=== PATIENT | female | born 1990 | race Caucasian/White ===

== ENCOUNTER 2018-05-29 15:30 | Outpatient (RCR) | payer BC ==
[~2018-05-29 15:30] MED LIST: AUGMENTIN XR 101 TER PO; CARAFATE 1GM1 G PO; EFFEXOR 75M75 MG/TAB PO; LUTERA 0.02 MG-1 TAB PO; NO HOME MEDICATIONS; PERCOCET 325 MG1 TA2 PO; PHENERGAN 25 TA25 MG PO; PROAIR HFA0.09 MG/AC; TOPAMAX 25MG25 M1 PO; ZOFRAN 4MG T4 MG/TAB PO
== END 2018-08-01 | disposition home or self-care (01) ==
LOC: WSPT
DX: M54.2 Cervicalgia (principal); G89.29 Other chronic pain; G43.709 Chronic migraine without aura, not intractable, without status migrainosus; Z79.82 Long term (current) use of aspirin; Z79.899 Other long term (current) drug therapy

== ENCOUNTER → 2019-03-14 | Outpatient (CLI) | payer BC ==
[~2019-03-14] MED LIST changes: +FLEXERIL 1010 MG/TAB PO; +MOBIC 7.5MG7.5 MG PO; +XANAX 0.5MG0.5 MG PO; +ZANAFLEX CAPSULE2 MG PO
== END ==
LOC: MHCPAIN 08:47
DX: G89.29 Other chronic pain (principal); M47.812 Spondylosis without myelopathy or radiculopathy, cervical region; R51 Headache; M54.81 Occipital neuralgia
CPT/HCPCS: G0463

== ENCOUNTER → 2019-03-28 | Outpatient (CLI) | payer BC | LOC: MHCPAIN 08:42 | DX: M79.18 Myalgia, other site (principal) | CPT/HCPCS: J1040 ==

== ENCOUNTER 2019-05-12 18:18 | Emergency (ER) | payer BC ==
[~2019-05-12] VITALS: Ht 160 cm; Wt 113.2 kg
[2019-05-12 18:24] VITALS: BP 134/75; TEMP 98.2
[2019-05-12 19:09] LABS: BASO % 0.2 % (0.0-2.0); EOS % 0.2 % (0-4.0); GRAN # 11.3 (1.4-6.5); GRAN % 88.7 % (42.2-75.2); HEMATOCRIT 39.9 % (37.0-47.0); HEMOGLOBIN 12.9 g/dl (12.5-16.0); LYMPH % 7.5 % (20.0-51.0); MEAN CELL VOLUME 86 fl (80.0-100.0); MEAN CORPUSCULAR HEMOGLOBIN 28 pg (27.0-31.0); MEAN CORPUSCULAR HGB CONC 32 g/dl (33.0-37.0); MEAN PLATELET VOLUME 10.5 fl (7.4-10.4); MONO # 0.4 (0.1-0.6); MONO % 2.9 % (1.7-9.3); PLATELET COUNT 248 K/mm3 (130-400); RED BLOOD COUNT 4.62 M/mm3 (4.10-5.30); REDCELL DISTRIBUTION WIDTH-CV 13.5 % (11.5-14.5)
[2019-05-12 19:12] LABS: ALBUMIN 4.4 gm/dL (3.5-5.0); BILIRUBIN,TOTAL 0.4 mg/dL (0.0-1.0); CALCIUM 9.2 mg/dL (8.4-10.2); CREATININE, serum 0.55 (0.52-1.25); POTASSIUM 3.8 mmol/L (3.4-5.0); TOTAL PROTEIN 7.8 gm/dL (6.4-8.2)
[2019-05-12 19:53] VITALS: PULSE 85
== END 2019-05-12 19:53 | disposition home or self-care (01) ==
LOC: COL.ER 18:18
PROVIDERS: Physician Assistant
DX: O21.0 Mild hyperemesis gravidarum (principal); Z3A.09 9 weeks gestation of pregnancy
CPT/HCPCS: J2405; J7030

== ENCOUNTER 2019-05-12 22:58 | Emergency (ER) | payer BC ==
[~2019-05-12] VITALS: Ht 160 cm; Wt 111.8 kg
[2019-05-12 23:09] VITALS: TEMP 98.9
[2019-05-12 23:46] LABS: COLLECTION METHOD CLEAN CATCH
[2019-05-12 23:52] LABS: MUCOUS Present /lpf; PH 5 (5-8); URINE APPEARANCE Hazy; URINE BACTERIA Rare /hpf; URINE BILIRUBIN Negative (NEGATIVE); URINE BLOOD Negative (NEGATIVE); URINE COLOR Yellow; URINE GLUCOSE Negative (NEGATIVE); URINE KETONE 1+ (NEGATIVE); URINE LEUKOCYTE ESTERASE Negative (NEGATIVE); URINE NITRATE Negative (NEGATIVE); URINE PROTEIN(semi-quant) Negative (NEGATIVE); URINE RBC 0-2 /hpf; URINE UROBILINOGEN Negative (NEGATIVE)
[2019-05-13 00:05] LABS: BASO % 0.1 % (0.0-2.0); EOS % 0.1 % (0-4.0); GRAN % 90.5 % (42.2-75.2); HEMATOCRIT 39.2 % (37.0-47.0); HEMOGLOBIN 12.6 g/dl (12.5-16.0); LYMPH # 0.6 (1.2-3.4); LYMPH % 5.9 % (20.0-51.0); MEAN CELL VOLUME 88 fl (80.0-100.0); MEAN CORPUSCULAR HEMOGLOBIN 28 pg (27.0-31.0); MEAN CORPUSCULAR HGB CONC 32 g/dl (33.0-37.0); MEAN PLATELET VOLUME 10.7 fl (7.4-10.4); MONO # 0.3 (0.1-0.6); MONO % 2.9 % (1.7-9.3); PLATELET COUNT 207 K/mm3 (130-400); RED BLOOD COUNT 4.45 M/mm3 (4.10-5.30); REDCELL DISTRIBUTION WIDTH-CV 13.6 % (11.5-14.5)
[2019-05-13 00:21] LABS: CALCIUM 8.7 mg/dL (8.4-10.2); CREATININE, serum 0.57 (0.52-1.25); POTASSIUM 3.5 mmol/L (3.4-5.0)
[2019-05-13 02:05] VITALS: BP 119/71; PULSE 116
== END 2019-05-13 02:14 | disposition home or self-care (01) ==
LOC: COL.ER 22:58
PROVIDERS: Physician Assistant
DX: O21.0 Mild hyperemesis gravidarum (principal); Z3A.09 9 weeks gestation of pregnancy
CPT/HCPCS: J2765; J7030

== ENCOUNTER 2019-07-21 10:33 | Emergency (ER) | payer BC ==
[~2019-07-21] VITALS: Ht 160 cm; Wt 112.3 kg
[2019-07-21] MEDS ORDERED: PHENERGAN12.5 MG/SU RC (11:15)
[2019-07-21] MEDS ORDERED: TAMIFLU 75MG75 MG PO (11:15)
[2019-07-21] MEDS ORDERED: GLUCOPHAGE500 MG/TAB PO (11:18)
[2019-07-21] MEDS ORDERED: PHENERGAN 25 TA25 MG PO (11:19)
[2019-07-21 15:30] VITALS: TEMP 98.1
[2019-07-21 15:40] VITALS: BP 106/69; PULSE 119
== END 2019-07-21 15:46 | disposition home or self-care (01) ==
LOC: COL.ER 10:33
DX: J11.1 Influenza due to unidentified influenza virus with other respiratory manifestations (principal)
CPT/HCPCS: J2550; J7030

== ENCOUNTER 2019-10-31 23:44 | Emergency (ER) | payer OTHER ==
[~2019-10-31] VITALS: Ht 160 cm; Wt 104.5 kg
[~2019-10-31 23:44] MED LIST changes: +GLUCOPHAGE500 MG/TAB PO; +PHENERGAN12.5 MG/SU RC; +TAMIFLU 75MG75 MG PO
[2019-11-01 00:20] LABS: COLLECTION METHOD CLEAN CATCH
[2019-11-01 00:25] LABS: PH 7 (5-8); URINE APPEARANCE Clear; URINE BACTERIA None Seen /hpf; URINE BILIRUBIN Negative (NEGATIVE); URINE BLOOD Negative (NEGATIVE); URINE COLOR Straw; URINE GLUCOSE Negative (NEGATIVE); URINE KETONE Negative (NEGATIVE); URINE LEUKOCYTE ESTERASE Negative (NEGATIVE); URINE NITRATE Negative (NEGATIVE); URINE PROTEIN(semi-quant) Negative (NEGATIVE); URINE RBC None Seen /hpf; URINE UROBILINOGEN Negative (NEGATIVE)
[2019-11-01 00:39] LABS: BASO % 0.3 % (0.0-2.0); EOS % 0.4 % (0-4.0); GRAN # 8.6 (1.4-6.5); GRAN % 75.7 % (42.2-75.2); HEMOGLOBIN 10.2 g/dl (12.5-16.0); LYMPH % 17.8 % (20.0-51.0); MEAN CELL VOLUME 84 fl (80.0-100.0); MEAN CORPUSCULAR HEMOGLOBIN 27 pg (27.0-31.0); MEAN CORPUSCULAR HGB CONC 32 g/dl (33.0-37.0); MONO # 0.6 (0.1-0.6); PLATELET COUNT 214 K/mm3 (130-400); RED BLOOD COUNT 3.77 M/mm3 (4.10-5.30); REDCELL DISTRIBUTION WIDTH-CV 14.5 % (11.5-14.5)
[2019-11-01 00:40] LABS: HEMATOCRIT 31.5 % (37.0-47.0)
[2019-11-01 01:15] LABS: ALANINE AMINOTRANSFERASE 13 U/L (4-34); ALBUMIN 3.6 gm/dL (3.5-5.0); ALKALINE PHOSPHATASE 110 U/L (50-136); ANION GAP 6 mmol/L (7-16); AST,SGOT 16 U/L (15-37); BILIRUBIN,TOTAL 0.2 mg/dL (0.0-1.0); BLOOD UREA NITROGEN 8 mg/dL (7-17); CALCIUM 9.3 mg/dL (8.4-10.2); CARBON DIOXIDE 23 mmol/L (22-30); CHLORIDE 107 mmol/L (98-107); CREATININE, serum 0.53 (0.52-1.25); GLUCOSE 94 mg/dL (74-106); POTASSIUM 3.5 mmol/L (3.4-5.0); SODIUM 137 mmol/L (137-145); TOTAL PROTEIN 6.7 gm/dL (6.4-8.2)
[2019-11-01 01:29] LABS: TROPONIN-I < 0.012 ng/mL (0.000-0.035)
[2019-11-01 03:59] VITALS: BP 134/57; PULSE 102; TEMP 97.6
== END 2019-11-01 04:01 | disposition home or self-care (01) ==
LOC: COL.ER 23:44
PROVIDERS: Physician Assistant
DX: O99.513 Diseases of the respiratory system complicating pregnancy, third trimester (principal); J45.901 Unspecified asthma with (acute) exacerbation; O24.419 Gestational diabetes mellitus in pregnancy, unspecified control; O99.343 Other mental disorders complicating pregnancy, third trimester; G43.909 Migraine, unspecified, not intractable, without status migrainosus; Z79.84 Long term (current) use of oral hypoglycemic drugs; Z3A.32 32 weeks gestation of pregnancy
CPT/HCPCS: J1200; J2765; J7030; J7512

== ENCOUNTER 2019-12-14 09:07 | Inpatient (IN) | payer OTHER ==
[~2019-12-14] VITALS: Ht 162.7 cm; Wt 108.2 kg
[2019-12-14] VITALS (17 sets, daily range): BP systolic 91–129; BP diastolic 48–73; PULSE 79–105; TEMP 97.6–98.7
--- NOTE | 2019-12-14 09:20 | NUR ---
Patient ambulatory to 211 with mother, changed into gown, FHR/TOCO monitors placed and explained. Patient denies any regular contractions/leaking of fluid/vaginal bleeding/decreased movement. Plan of care discussed and questions answered. 0950: IV placed in left hand per Domi RN, blood obtained and to lab, LR infusing. Assessment completed/consents gone over and signed. Patient prepped for surgery. 1015: Patient off monitor and ambulates to OR.
[2019-12-14] MEDS ORDERED: BUTALBITAL ACET1 CAP PO (09:42)
[2019-12-14] MEDS ORDERED: GLUCOPHAGE500 MG/TAB PO (09:42)
[2019-12-14] MEDS ORDERED: BENADRYL25 M2 PO (09:43)
[2019-12-14 10:06] LABS: BASO % 0.3 % (0.0-2.0); EOS # 0.1 (0.0-0.7); EOS % 0.9 % (0-4.0); GRAN % 80.3 % (42.2-75.2); HEMOGLOBIN 10.3 g/dl (12.5-16.0); LYMPH # 1.7 (1.2-3.4); LYMPH % 13.6 % (20.0-51.0); MEAN CELL VOLUME 83 fl (80.0-100.0); MEAN CORPUSCULAR HEMOGLOBIN 26 pg (27.0-31.0); MEAN CORPUSCULAR HGB CONC 32 g/dl (33.0-37.0); MEAN PLATELET VOLUME 11.4 fl (7.4-10.4); MONO # 0.5 (0.1-0.6); MONO % 4.3 % (1.7-9.3); PLATELET COUNT 234 K/mm3 (130-400); RED BLOOD COUNT 3.91 M/mm3 (4.10-5.30); REDCELL DISTRIBUTION WIDTH-CV 15.8 % (11.5-14.5)
[2019-12-14 10:09] LABS: HEMATOCRIT 32.4 % (37.0-47.0)
--- NOTE | 2019-12-14 15:40 | NUR ---
Patient up to bathroom and mcmahan catheter removed and patient tolerates well. Pericare done, new gown/underwear/pad on. Abdominal binder adjusted. Patient ambulating.
--- NOTE | 2019-12-14 20:40 | NUR ---
2 HOUR PP BLOOD SUGAR 178
[2019-12-15] VITALS (15 sets, daily range): BP systolic 92–116; BP diastolic 50–74; PULSE 86–108; TEMP 97.7–98.3
[2019-12-15 09:47] LABS: HEMATOCRIT 27.7 % (37.0-47.0); HEMOGLOBIN 8.6 g/dl (12.5-16.0)
--- NOTE | 2019-12-15 13:48 | NUR ---
stopped by but nothing needed at this time.
[2019-12-15 14:41] LABS: MEAN CELL VOLUME 84 fl (80.0-100.0); MEAN CORPUSCULAR HGB CONC 32 g/dl (33.0-37.0); MEAN PLATELET VOLUME 10.9 fl (7.4-10.4); PLATELET COUNT 208 K/mm3 (130-400); RED BLOOD COUNT 3.18 M/mm3 (4.10-5.30); REDCELL DISTRIBUTION WIDTH-CV 15.8 % (11.5-14.5)
[2019-12-15 14:52] LABS: HEMATOCRIT 26.7 % (37.0-47.0); HEMOGLOBIN 8.4 g/dl (12.5-16.0); MEAN CORPUSCULAR HEMOGLOBIN 26 pg (27.0-31.0)
[2019-12-16 05:10] VITALS: BP 117/70; PULSE 96; TEMP 97.9
[2019-12-16 06:35] VITALS: BP 116/66; PULSE 97; TEMP 98.1
[2019-12-16 07:52] LABS: BASO % 0.2 % (0.0-2.0); EOS # 0.1 (0.0-0.7); EOS % 1.1 % (0-4.0); GRAN % 74.8 % (42.2-75.2); HEMATOCRIT 29.6 % (37.0-47.0); HEMOGLOBIN 9.3 g/dl (12.5-16.0); LYMPH # 2.3 (1.2-3.4); LYMPH % 19.3 % (20.0-51.0); MEAN CELL VOLUME 84 fl (80.0-100.0); MEAN CORPUSCULAR HEMOGLOBIN 26 pg (27.0-31.0); MEAN CORPUSCULAR HGB CONC 31 g/dl (33.0-37.0); MEAN PLATELET VOLUME 10.7 fl (7.4-10.4); MONO # 0.5 (0.1-0.6); PLATELET COUNT 196 K/mm3 (130-400); RED BLOOD COUNT 3.54 M/mm3 (4.10-5.30); REDCELL DISTRIBUTION WIDTH-CV 15.8 % (11.5-14.5)
[2019-12-16 15:55] VITALS: BP 122/63; PULSE 93; TEMP 97.5
[2019-12-16 20:00] VITALS: BP 109/59; PULSE 98; TEMP 98
[2019-12-17 09:00] VITALS: BP 109/63; PULSE 104; TEMP 97.8
[2019-12-17] MEDS ORDERED: FERROUS SU325 MG/TAB PO (09:08)
[2019-12-17] MEDS ORDERED: PERCOCET 325 MG1 TA2 PO (09:08)
[2019-12-17] MEDS ORDERED: IBU600 MG PO (09:08)
[2019-12-17] MEDS ORDERED: GLUCOPHAGE XR500 M1 PO (09:09)
== END 2019-12-17 14:40 | disposition home or self-care (01) | DRG 787 ==
LOC: OB 09:07
PROVIDERS: Obstetrics & Gynecology; ADMIT Obstetrics & Gynecology
PROC: 10D00Z1 Extraction of Products of Conception, Low, Open Approach (ICD-10-PCS; principal; 2019-12-14)
DX: O34.219 Maternal care for unspecified type scar from previous cesarean delivery (principal); O99.354 Diseases of the nervous system complicating childbirth; D62 Acute posthemorrhagic anemia; O24.425 Gestational diabetes mellitus in childbirth, controlled by oral hypoglycemic drugs; Z3A.38 38 weeks gestation of pregnancy; Z37.0 Single live birth; O99.214 Obesity complicating childbirth; G43.909 Migraine, unspecified, not intractable, without status migrainosus; O99.344 Other mental disorders complicating childbirth; F41.8 Other specified anxiety disorders; O90.81 Anemia of the puerperium
CPT/HCPCS: A9585; J0690; J1100; J1885; J2405; J2590; J7120; P9016

== ENCOUNTER → 2020-02-12 | Outpatient (CLI) | payer OTHER ==
[~2020-02-12] MED LIST changes: +BENADRYL25 M2 PO; +BUTALBITAL ACET1 CAP PO; +FERROUS SU325 MG/TAB PO; +GLUCOPHAGE XR500 M1 PO; +IBU600 MG PO
== END ==
LOC: MHCPAIN 14:00
DX: M47.812 Spondylosis without myelopathy or radiculopathy, cervical region (principal); M54.81 Occipital neuralgia; M54.2 Cervicalgia; R51 Headache; G89.29 Other chronic pain
CPT/HCPCS: G0463

== ENCOUNTER 2020-02-17 10:02 | Emergency (ER) | payer OTHER ==
[~2020-02-17] VITALS: Ht 160 cm; Wt 97.7 kg
[2020-02-17 10:05] VITALS: TEMP 97.4
[2020-02-17] MEDS ORDERED: ULTRAM 50MG TAB50 MG PO (12:10)
[2020-02-17] MEDS ORDERED: PREDNISONE20 MG PO (12:10)
[2020-02-17 12:12] VITALS: BP 111/76; PULSE 111
== END 2020-02-17 12:19 | disposition home or self-care (01) ==
LOC: COL.ER 10:02
DX: M54.2 Cervicalgia (principal); G89.29 Other chronic pain; Z88.2 Allergy status to sulfonamides; Z88.5 Allergy status to narcotic agent; Z90.49 Acquired absence of other specified parts of digestive tract; Z79.84 Long term (current) use of oral hypoglycemic drugs
CPT/HCPCS: J1885; J2360

== ENCOUNTER 2020-02-19 13:30 | Emergency (ER) | payer OTHER ==
[~2020-02-19] VITALS: Ht 160 cm; Wt 97.7 kg
[~2020-02-19 13:30] MED LIST changes: +PREDNISONE20 MG PO; +ULTRAM 50MG TAB50 MG PO
[2020-02-19 13:33] VITALS: TEMP 98.4
[2020-02-19] MEDS ORDERED: NEURONTIN300 MG/CAP PO (14:04)
[2020-02-19 15:00] VITALS: BP 113/75; PULSE 86
== END 2020-02-19 15:15 | disposition home or self-care (01) ==
LOC: COL.ER 13:30
DX: M54.2 Cervicalgia (principal); G89.29 Other chronic pain; R51 Headache; Z79.84 Long term (current) use of oral hypoglycemic drugs; Z79.52 Long term (current) use of systemic steroids; Z88.2 Allergy status to sulfonamides; Z88.6 Allergy status to analgesic agent
CPT/HCPCS: J1885; J7030

== ENCOUNTER 2020-03-17 21:44 | Emergency (ER) | payer OTHER ==
[~2020-03-17] VITALS: Ht 160 cm; Wt 100.0 kg
[~2020-03-17 21:44] MED LIST changes: +NEURONTIN300 MG/CAP PO
[2020-03-17 21:49] VITALS: TEMP 97.7
[2020-03-17 23:59] VITALS: BP 108/75; PULSE 98
== END 2020-03-17 23:59 | disposition home or self-care (01) ==
LOC: COL.ER 21:44
DX: G43.909 Migraine, unspecified, not intractable, without status migrainosus (principal); Z90.49 Acquired absence of other specified parts of digestive tract
CPT/HCPCS: J0595; J1885; J2550